=== PATIENT | male | born 1975 | race Two or more races ===

== ENCOUNTER 2022-03-14 13:40 | Emergency (ER) | payer MEDICAID, OTHER ==
[~2022-03-14] VITALS: Ht 177.8 cm; Wt 100.0 kg
[2022-03-14 14:26] VITALS: BP 190/129
== END 2022-03-14 17:27 | disposition left against medical advice (07) ==
LOC: ER 13:40
DX: I10 Essential (primary) hypertension (principal); Z53.21 Procedure and treatment not carried out due to patient leaving prior to being seen by health care provider